=== PATIENT | male | born 1980 | race Caucasian/White ===

== ENCOUNTER 2017-06-11 21:13 | Emergency (ER) | payer MEDICAID ==
[2017-06-11 22:17] LABS: ALANINE AMINOTRANSFERASE 39 U/L (21-72); ALBUMIN 4.3 g/dL (3.5-5.0); ALKALINE PHOSPHATASE 73 U/L (38-126); ANION GAP 9 (5-19); ASPARTATE AMINO TRANSFERASE 24 U/L (17-59); BILIRUBIN,DIRECT 0.4 mg/dL (0.0-0.4); BILIRUBIN,TOTAL 0.5 mg/dL (0.2-1.3); BLOOD UREA NITROGEN 11 mg/dL (7-20); CALCIUM 9.1 mg/dL (8.4-10.2); CARBON DIOXIDE 24 mmol/L (22-30); CHLORIDE 109 mmol/L (98-107); CREATININE RESULT 1.04 mg/dL (0.52-1.25); GLUCOSE 97 mg/dL (75-110); POTASSIUM 3.8 mmol/L (3.6-5.0); SODIUM 141.5 mmol/L (137-145); TOTAL PROTEIN 7.6 g/dL (6.3-8.2)
[2017-06-11 22:19] LABS: ABSOLUTE BASOPHILS # (AUTO) 0.1 10^3/uL (0.0-0.2); ABSOLUTE EOSINOPHILS # (AUTO) 0.1 10^3/uL (0.0-0.6); ABSOLUTE LYMPHOCYTES (AUTO) 3.3 10^3/uL (0.5-4.7); ABSOLUTE NEUT (AUTO) 8.2 10^3/uL (1.7-8.2); BASOPHILS % (AUTO) 0.8 % (0-2); EOSINOPHILS % (AUTO) 0.7 % (0-6); HEMATOCRIT 45.1 % (37.9-51.0); HEMOGLOBIN 15.8 g/dL (13.5-17.0); HGB HCT DIFFERENCE 2.3; LYMPHOCYTES % (AUTO) 26.1 % (13-45); MEAN CORPUSCULAR HGB CONC 35.1 g/dL (32.0-36.0); MEAN CORPUSCULAR VOLUME 88 fl (80-97); MONOCYTES % (AUTO) 7.9 % (3-13); RED CELL DISTRIBUTION WIDTH 13.1 % (11.5-14.0); SEGMENTED NEUTROPHILS % (AUTO) 64.5 % (42-78); WHITE BLOOD COUNT 12.6 10^3/uL (4.0-10.5)
[2017-06-11 22:20] LABS: ALCOHOL < 10 mg/dL (NONE DETECTED)
[2017-06-11 22:32] LABS: APPEARANCE,URINE SLIGHTLY-CLOUDY; BILIRUBIN,URINE NEGATIVE (NEGATIVE); GLUCOSE, URINE NEGATIVE (NEGATIVE); KETONES,URINE NEGATIVE (NEGATIVE); LEUKOCYTE ESTERASE,URINE NEGATIVE (NEGATIVE); NITRITE,URINE NEGATIVE (NEGATIVE); PROTEIN,URINE NEGATIVE (NEGATIVE); URINE SPECIFIC GRAVITY 1.033
[2017-06-11 22:41] LABS: URINE BARBITURATES SCREEN NEGATIVE; URINE METHADONE SCREEN NEGATIVE; URINE OPIATES LOW NEGATIVE; URINE PHENCYCLIDINE SCREEN NEGATIVE
--- NOTE | 2017-06-11 22:44 | ER Document Report ---
ED General - General Chief Complaint: Suicidal Ideation Stated Complaint: POSSIBLE OVERDOSE Time Seen by Provider: 06/11/17 21:24 Cannot obtain history due to: Uncooperative Notes: Patient is a 36-year-old male with a past medical history of schizophrenia who presents after overdosing on haloperidol and attempt to kill himself. Patient states he took 20 mg of oral haloperidol tonight stating "I wanted to go to sleep and not wake up". Patient then almost immediately states that he was not trying to kill himself and is unable to clarify the difference between wanting to go to sleep and not wake up and killing himself. He denies any acute additional medical concerns. He states that this attempt was spontaneous and not preplanned. He is asking if he can go home. He denies any additional coingestions. TRAVEL OUTSIDE OF THE [place] IN LAST 30 DAYS: No - Related Data Allergies/Adverse Reactions: chlorpromazine HCl [From Thorazine] Allergy (Verified 11/19/14 20:37) lithium [[place]] Allergy (Verified 11/19/14 20:37) Penicillins Allergy (Verified 11/19/14 20:37) ziprasidone HCl [From Geodon] Allergy (Verified 11/19/14 20:37) ziprasidone mesylate [From Geodon] Allergy (Verified 11/19/14 20:37) Past Medical History - General Information source: Patient - Social History Smoking Status: Current Every Day Smoker Chew tobacco use (# tins/day): No Frequency of alcohol use: Social Drug Abuse: Cocaine, Marijuana, Methamphetamine Family History: Reviewed & Not Pertinent Patient has suicidal ideation: Yes Patient has homicidal ideation: No Renal/ Medical History: Denies: Hx Peritoneal Dialysis Psychiatric Medical History: Reports: Hx Anxiety, Hx Attention Deficit Hyperactivity Disorder, Hx Bipolar Disorder, Hx Depression, Hx Schizoaffective Disorder - paranoid, Hx Schizophrenia Past Surgical History: Reports: Hx Abdominal Surgery - HERNIA X2, Hx Herniorrhaphy, Hx Orthopedic Surgery - right foot - Immunizations Hx Diphtheria, Pertussis, Tetanus Vaccination: Yes Review of Systems - Review of Systems Notes: Constitutional: Negative for fever. HENT: Negative for sore throat. Eyes: Negative for visual changes. Cardiovascular: Negative for chest pain. Respiratory: Negative for shortness of breath. Gastrointestinal: Negative for abdominal pain, vomiting or diarrhea. Genitourinary: Negative for dysuria. Musculoskeletal: Negative for back pain. Skin: Negative for rash. Neurological: Negative for headaches, weakness or numbness. 10 point ROS negative except as marked above and in HPI. Physical Exam - Vital signs Vitals: Pulse Ox 94 06/11/17 21:26 Interpretation: Normal Notes: PHYSICAL EXAMINATION: GENERAL: Well-appearing, well-nourished and in no acute distress. HEAD: Atraumatic, normocephalic. EYES: Pupils equal round and reactive to light, extraocular movements intact, sclera anicteric, conjunctiva are normal. ENT: nares patent, oropharynx clear without exudates. Moist mucous membranes. NECK: Normal range of motion, supple without lymphadenopathy LUNGS: Breath sounds clear to auscultation bilaterally and equal. No wheezes rales or rhonchi. HEART: Regular rate and rhythm without murmurs ABDOMEN: Soft, nontender, normoactive bowel sounds. No guarding, no rebound. No masses appreciated. EXTREMITIES: Normal range of motion, no pitting or edema. No cyanosis. NEUROLOGICAL: No focal neurological deficits. Moves all extremities spontaneously and on command. PSYCH: Somewhat agitated, redirectable. Pressured speech. SKIN: Warm, Dry, normal turgor, no rashes or lesions noted. Course - Re-evaluation Re-evalutation: 06/11/17 22:43 Patient presents with acute suicidal ideation, tried to overdose on his Haldol but only took 20 mg. On arrival patient states he feels fine would like to go home but does admit that the purpose behind him taking his overdose of medication was to harm himself. He denies any additional acute medical complaints. This was haloperidol is not high enough level that I would be concerned for any acute life-threatening pathology. However patient has been placed on involuntary commitment, medical screening labs have been obtained, medical screening exam is unremarkable. He will be evaluated by psychiatry in the morning. 06/12/17 03:16 Labs have been reviewed and are unremarkable with exception of a positive cocaine and benzodiazepine. Patient is resting calmly. He is cleared for evaluation by psychiatry. - Vital Signs Vital signs: Temp Pulse Resp BP Pulse Ox 98.6 F 16 133/104 H 96 06/11/17 21:51 06/11/17 22:02 06/11/17 22:02 06/11/17 22:02 - Laboratory Result Diagrams: 06/11/17 21:45 06/11/17 21:45 Laboratory results interpreted by me: 06/11/17 06/11/17 06/11/17 21:45 21:45 21:45 WBC 12.6 H Chloride 109 H Urine Urobilinogen 2.0 H Salicylates < 1.0 L Acetaminophen < 10 L - EKG Interpretation by Me Additional EKG results interpreted by me: 06/12/17 03:16 Sinus rhythm. Rate 96. No ST elevations or depressions. QTC is 460. Discharge - Discharge Clinical Impression: Suicide attempt, Cocaine abuse Overdose Qualifiers: Encounter type: initial encounter Injury intent: intentional self-harm Qualified Code(s): T50.902A - Poisoning by unspecified drugs, medicaments and biological substances, intentional self-harm, initial encounter Condition: Fair Disposition: PSYCH HOSP/UNIT
--- NOTE | 2017-06-11 23:18 | EKG REPORT ---
SEVERITY:- BORDERLINE ECG - SINUS RHYTHM BORDERLINE T ABNORMALITIES, INFERIOR LEADS : Confirmed by: Jefe Hall MD 11-Jun-2017 23:17:02
--- NOTE | 2017-06-12 11:45 | PSYCHOLOGICAL NOTE ---
Psych Note - Psych Note Psych Note: Patient is a 36-year-old male with a past psychiatric history of schizoaffective ; bipolar type who presents after reportedly overdosing on haloperidol in an attempt to kill himself. Patient states he took 20 mg of oral haloperidol tonight stating "I wanted to go to sleep and not wake up". Patient then almost immediately states that he was not trying to kill himself and is unable to clarify the difference between wanting to go to sleep and not wake up and killing himself. He denies any acute additional medical concerns. Patient disclosed that that he came to [facility] ED because he "took some medication. " When asked what the patient took he stated he took 20 mg of Haldol. Patient confirms he has a prescription for this in the amount of 1 mg daily. Patient continued disclosed that his doctor is Dr. Vasquez. Patient states that he has been on Haldol for approximately 1 year. Patient states that he is been feeling depressed however there is been no difference between how he felt last night during attempt versus previous days. Patient just stated "I was just aggravated about life." Patient states that he is tired of living alone for the last 4 months. Patient confirms he has had inpatient psychiatric treatment last time being about approximately 1 year ago. Patient states he is diagnosed with ADHD and schizoaffective bipolar type. Patient confirms he is unable to work because of these diagnoses. Patient states he no longer is having thoughts of suicide stating "I do not feel any different is hard to explain I just do not want to kill myself." Patient is alert and orientated to person, place, time and circumstance. Mood is euthymic with restricted affect. Patient denies current suicidal ideation endorses suicidal gesture last night. Patient denies homicidal ideation. Patient denies auditory visual hallucinations. Delusions are absent and behaviors congruent with intact reality based presentation i.e. organized and linear thinking. Eye contact was fair. Conversational speech was within normal rate, tone and prosody. Intellectual abilities appear to be within the average range. Attention and concentration were good. Insight, judgment, impulse control is fair. 295.70 (F25.0) schizoaffective bipolar type per history provided by patient 314.01 (F90.9) unspecified attention deficit/hyperactivity disorder per history provided patient Impression\\plan: Patient is recommended for rescind of IVC and is considered psychiatrically clear for discharge. Patient does not meet IVC criteria per [place] GS 122C. Patient denies current suicidal ideation. Patient disclosed that he took 20 mg of Haldol last night and attempt at suicide. He continued to state that this was a prescribed medication for him for proximally one year. Behavior health team confirmed patient does not have a prescription for Haldol. Patient does have a long-standing prescription for Adderall which he takes 1 mg every morning. Additionally, patient's toxicology report indicates the patient did not take any of his Adderall; however, was positive for benzodiazepines and cocaine. Patient is recommended for outpatient substance abuse treatment. Dr. Conti was consulted and the care management of this patient; attending physician is in agreement with recommendations and disposition.
[2017-06-12 12:03] VITALS: BP 125/71
--- NOTE | 2017-06-12 12:15 | ER Document Report ---
Doctor's Note Notes: 06/12/17 12:23 She is alert and oriented. Ambulatory without distress. He denies any suicidal or homicidal ideations. The patient in full with [facility]. The patient will be discharged home with outpatient follow-up. The patient is agreeable to the discharge plan. I told him if he feels suicidal he is to return to the emergency department immediately. Patient verbalized understanding. He was discharged home in stable condition.
== END 2017-06-12 12:31 | disposition home or self-care (01) ==
LOC: ER 21:13
DX: T50.902A Poisoning by unspecified drugs, medicaments and biological substances, intentional self-harm, initial encounter (principal); F14.10 Cocaine abuse, uncomplicated; F15.90 Other stimulant use, unspecified, uncomplicated; X83.8XXA Intentional self-harm by other specified means, initial encounter
CPT/HCPCS: 36415; 80053; 80307; 81001; 85025; 93005; 93010; 99285

== ENCOUNTER 2018-12-20 05:45 | Emergency (ER) | payer MEDICAID ==
[2018-12-20] MEDS ORDERED: LORAZEPAM INJ 2 MG/1 ML VIAL IV ONE (06:23)
--- NOTE | 2018-12-20 06:23 | ER Document Report ---
ED General - General Chief Complaint: Psych Problem Stated Complaint: POSSIBLE PANIC ATTACK Time Seen by Provider: 12/20/18 06:05 Notes: This is a 37-year-old male presents via EMS for paranoia. Patient states that he has been doing methamphetamines. Thinks it may be he was poisoned. Was in custodial for 19 months and recently got out. Has been smoking and snorting what he thinks is methamphetamines however thinks it may be he was poisoned by someone. He thinks that people are out to get him because I have labeled him as a "rat". Patient denies any suicidal ideation at this time. TRAVEL OUTSIDE OF THE [place] IN LAST 30 DAYS: No - HPI Onset: Yesterday Onset/Duration: Gradual, Constant Severity: None Pain Level: Denies Associated symptoms: Other - Agitation, paranoia - Related Data Allergies/Adverse Reactions: chlorpromazine HCl [From Thorazine] Allergy (Verified 12/20/18 06:46) lithium [[place]] Allergy (Verified 12/20/18 06:46) Penicillins Allergy (Verified 12/20/18 06:46) ziprasidone HCl [From Geodon] Allergy (Verified 12/20/18 06:46) ziprasidone mesylate [From Geodon] Allergy (Verified 12/20/18 06:46) Past Medical History - General Information source: Patient - Social History Smoking Status: Current Every Day Smoker Frequency of alcohol use: None Drug Abuse: Methamphetamine Lives with: Alone Family History: Reviewed & Not Pertinent Patient has suicidal ideation: No Patient has homicidal ideation: No Renal/ Medical History: Denies: Hx Peritoneal Dialysis Psychiatric Medical History: Reports: Hx Anxiety, Hx Attention Deficit Hyperactivity Disorder, Hx Bipolar Disorder, Hx Depression, Hx Schizoaffective Disorder - paranoid, Hx Schizophrenia Past Surgical History: Reports: Hx Abdominal Surgery - HERNIA X3, Hx Herniorrhaphy, Hx Orthopedic Surgery - right foot - Immunizations Hx Diphtheria, Pertussis, Tetanus Vaccination: Yes Review of Systems - Review of Systems Notes: Constitutional: denies: Chills, Diaphoresis, Fever, Malaise, Weakness EENT: denies: Eye discharge, Blurred vision, Tearing, Double vision, Nose congestion, Nose discharge, Throat swelling, Mouth pain Cardiovascular: denies: Palpitations, Heart racing, Orthopnea, Dyspnea, Chest pain Respiratory: denies: Cough, Hurts to breathe, Wheezing, Shortness of breath Gastrointestinal: denies: Abdominal pain, Diarrhea, Nausea, Vomiting, Black stools, bright red blood in stool Genitourinary: denies: Burning, Dysuria, Discharge, Frequency, Flank pain, Hematuria Musculoskeletal: denies: Joint pain, Joint swelling, Muscle pain, Muscle stiffness, back pain Hematologic/Lymphatic: denies: Anemia, Easy bleeding, Easy bruising, Blood clots Neurological/Psychological: Complains of substance abuse, paranoia, agitation Skin: No lesions, no masses, no skin breakdown, no abscesses Physical Exam - Vital signs Vitals: Temp Pulse Resp BP Pulse Ox 98 F 105 H 16 124/81 98 12/20/18 06:04 12/20/18 06:04 12/20/18 06:04 12/20/18 06:04 12/20/18 06:04 Interpretation: Tachycardic - General General appearance: Appears well, Alert - HEENT Head: Normocephalic, Atraumatic Eyes: Normal Pupils: PERRL Mucous membranes: Dry - Respiratory Respiratory status: No respiratory distress Chest status: Nontender Breath sounds: Normal Chest palpation: Normal - Cardiovascular Rhythm: Tachycardia Heart sounds: Normal auscultation Murmur: No - Abdominal Inspection: Normal Distension: No distension Bowel sounds: Normal Tenderness: Nontender Organomegaly: No organomegaly - Back Back: Normal, Nontender - Extremities General upper extremity: Normal inspection, Nontender, Normal color, Normal ROM, Normal temperature General lower extremity: Normal inspection, Nontender, Normal color, Normal ROM, Normal temperature, Normal weight bearing. No: Carol's sign - Neurological Neuro grossly intact: Yes Cognition: Normal Orientation: AAOx4 Delores Coma Scale Eye Opening: Spontaneous [place]ogg Coma Scale Verbal: Oriented Delores Coma Scale Motor: Obeys Commands Kellogg Coma Scale Total: 15 Speech: Normal Motor strength normal: LUE, RUE, LLE, RLE Sensory: Normal - Psychological Associated symptoms: Normal affect, Normal mood - Skin Skin Temperature: Warm Skin Moisture: Dry Skin Color: Normal Course - Re-evaluation Re-evalutation: 12/20/18 09:12 Patient with slight elevated WBC. However nontoxic-appearing. Ativan was given and fluids given. Resting comfortably at this time in no acute distress. 12/20/18 11:03 Patient is stating that he feels much better at this time. 12/20/18 11:04 Laboratory 12/20/18 12/20/18 06:39 06:39 WBC 11.8 H RBC 4.91 Hgb 15.2 Hct 43.3 MCV 88 MCH 30.9 MCHC 35.0 RDW 13.1 Plt Count 294 Seg Neutrophils % 66.7 Lymphocytes % 23.5 Monocytes % 8.5 Eosinophils % 0.6 Basophils % 0.7 Absolute Neutrophils 7.9 Absolute Lymphocytes 2.8 Absolute Monocytes 1.0 Absolute Eosinophils 0.1 Absolute Basophils 0.1 Sodium 141.0 Potassium 3.6 Chloride 107 Carbon Dioxide 24 Anion Gap 10 BUN 10 Creatinine 0.70 Est GFR ( Amer) > 60 Est GFR (Non-Af Amer) > 60 Glucose 85 Calcium 9.1 Total Bilirubin 0.7 Direct Bilirubin 0.3 Neonat Total Bilirubin Not Reportable Neonat Direct Bilirubin Not Reportable Neonat Indirect Bili Not Reportable AST 36 ALT 71 Alkaline Phosphatase 63 Creatine Kinase 141 Total Protein 7.1 Albumin 4.0 - Vital Signs Vital signs: Temp Pulse Resp BP Pulse Ox 98.1 F 93 16 134/76 H 98 12/20/18 10:58 12/20/18 10:58 12/20/18 10:58 12/20/18 10:58 12/20/18 10:58 - Laboratory Result Diagrams: 12/20/18 06:39 12/20/18 06:39 Laboratory results interpreted by me: 12/20/18 06:39 WBC 11.8 H Discharge - Discharge Clinical Impression: Methamphetamine abuse, Drug-induced paranoia or hallucinations Condition: Good Disposition: HOME, SELF-CARE Instructions: Drug Effects ([facility]) Additional Instructions: In the event if symptoms return please follow-up with your regular doctor or return to the emergency department. More likely all that you have experienced days due to your self-reported substance abuse. Methamphetamines can do this. Please return for worsening symptoms or concerns .
[2018-12-20 06:47] LABS: ABSOLUTE BASOPHILS # (AUTO) 0.1 10^3/uL (0.0-0.2); ABSOLUTE EOSINOPHILS # (AUTO) 0.1 10^3/uL (0.0-0.6); ABSOLUTE LYMPHOCYTES (AUTO) 2.8 10^3/uL (0.5-4.7); ABSOLUTE NEUT (AUTO) 7.9 10^3/uL (1.7-8.2); BASOPHILS % (AUTO) 0.7 % (0-2); EOSINOPHILS % (AUTO) 0.6 % (0-6); HEMATOCRIT 43.3 % (37.9-51.0); HEMOGLOBIN 15.2 g/dL (13.5-17.0); LYMPHOCYTES % (AUTO) 23.5 % (13-45); MEAN CORPUSCULAR HEMOGLOBIN 30.9 pg (27.0-33.4); MEAN CORPUSCULAR VOLUME 88 fl (80-97); MONOCYTES % (AUTO) 8.5 % (3-13); PLATELET COUNT 294 10^3/uL (150-450); RED BLOOD COUNT 4.91 10^6/uL (4.35-5.55); RED CELL DISTRIBUTION WIDTH 13.1 % (11.5-14.0); SEGMENTED NEUTROPHILS % (AUTO) 66.7 % (42-78); TOTAL CELLS COUNTED % (AUTO) 100 %; WHITE BLOOD COUNT 11.8 10^3/uL (4.0-10.5)
[2018-12-20] MEDS: NORMAL SALINE 1000 ML 1,000 ML IV PRN ×2 (06:47→07:49)
[2018-12-20 07:12] LABS: ALANINE AMINOTRANSFERASE 71 U/L (21-72); ALKALINE PHOSPHATASE 63 U/L (38-126); ANION GAP 10 (5-19); ASPARTATE AMINO TRANSFERASE 36 U/L (17-59); BILIRUBIN,DIRECT 0.3 mg/dL (0.0-0.4); BILIRUBIN,TOTAL 0.7 mg/dL (0.2-1.3); BLOOD UREA NITROGEN 10 mg/dL (7-20); CALCIUM 9.1 mg/dL (8.4-10.2); CARBON DIOXIDE 24 mmol/L (22-30); CHLORIDE 107 mmol/L (98-107); CREATINE KINASE 141 U/L (55-170); GLUCOSE 85 mg/dL (75-110); POTASSIUM 3.6 mmol/L (3.6-5.0); TOTAL PROTEIN 7.1 g/dL (6.3-8.2)
--- NOTE | 2018-12-20 07:30 | EKG REPORT ---
SEVERITY:- OTHERWISE NORMAL ECG - SINUS TACHYCARDIA : Confirmed by: Jefe Hall MD 20-Dec-2018 07:29:42
[2018-12-20 10:59] VITALS: BP 134/76
[2018-12-20 11:28] LABS: APPEARANCE,URINE SLIGHTLY-CLOUDY; BILIRUBIN,URINE NEGATIVE (NEGATIVE); COLOR,URINE YELLOW; GLUCOSE, URINE NEGATIVE (NEGATIVE); KETONES,URINE NEGATIVE (NEGATIVE); LEUKOCYTE ESTERASE,URINE NEGATIVE (NEGATIVE); NITRITE,URINE NEGATIVE (NEGATIVE); PROTEIN,URINE NEGATIVE (NEGATIVE); URINE SPECIFIC GRAVITY 1.021; UROBILINOGEN,URINE NEGATIVE mg/dL (<2.0)
[2018-12-20] MEDS ORDERED: NORMAL SALINE 1000 ML 1,000 ML IV ONE (11:39)
[2018-12-20] MEDS ORDERED: LORAZEPAM 1 MG TABLET PO ONE (11:40)
[2018-12-20 11:47] LABS: URINE BARBITURATES SCREEN NEGATIVE; URINE BENZODIAZEPINES SCREEN NEGATIVE; URINE COCAINE SCREEN NEGATIVE; URINE MARIJUANA (THC) SCREEN NEGATIVE; URINE METHADONE SCREEN NEGATIVE; URINE PHENCYCLIDINE SCREEN NEGATIVE
== END 2018-12-20 14:13 | disposition home or self-care (01) ==
LOC: ER 05:45
DX: T43.621A Poisoning by amphetamines, accidental (unintentional), initial encounter (principal); F19.10 Other psychoactive substance abuse, uncomplicated; F22 Delusional disorders; Y92.9 Unspecified place or not applicable; F17.200 Nicotine dependence, unspecified, uncomplicated
CPT/HCPCS: 93005; 99283; 96361; 96374; 36415; 82550; 85025; 80053; 81001; 80307; 93010; J2060; J7030